=== PATIENT | male | born 1990 | race Caucasian/White ===

== ENCOUNTER 2020-12-24 18:11 | Emergency (ER) | payer OTHER ==
[~2020-12-24] VITALS: Ht 180.3 cm; Wt 108.0 kg
[2020-12-24] MEDS ORDERED: CIPRO500 MG PO (22:09)
[2020-12-24] MEDS ORDERED: ZOFRAN8 MG PO (22:09)
[2020-12-24] MEDS ORDERED: PEPCID AC20 MG PO (22:09)
== END 2020-12-24 22:19 | disposition home or self-care (01) ==
LOC: ER 18:11
DX: K52.89 Other specified noninfective gastroenteritis and colitis (principal); Z03.818 Encounter for observation for suspected exposure to other biological agents ruled out